=== PATIENT | male | born 1975 | race Two or more races ===

== ENCOUNTER → 2019-03-12 | Outpatient (CLI) | payer BC ==
[~2019-03-12] MED LIST: REGADENOSON 0.4 MG/5 ML SYRINGE ONE
== END | disposition home or self-care (01) ==
LOC: CVU 08:08
PROVIDERS: ATTEND Physician Assistant
DX: I08.8 Other rheumatic multiple valve diseases (principal)
CPT/HCPCS: 78452; 93017; 93306; A9502; J2785

== ENCOUNTER 2020-08-15 05:00 | Emergency (ER) | payer SELFPAY ==
[~2020-08-15] VITALS: Ht 175.3 cm; Wt 123.2 kg
--- NOTE | 2020-08-15 05:52 | NUR ---
FIRST CONTACT WITH PT, PT SPEAKS FULL SENTENCES. VSS. PCXR DONE, LAB HERE DRAWING BLOOD. 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 CALL RADHA HAYWARD. WILL CONTINUE TO MONITOR THIS NON TOXIC APPEARING PT.
[2020-08-15 06:06] LABS: BASOPHILS % (AUTO) 1 % (0-1); EOSINOPHILS % (AUTO) 0 % (1-7); LYMPHOCYTES % (AUTO) 13 % (22-44); MEAN CORPUSCULAR HEMOGLOBIN 30.4 pg (27.5-34.5); MEAN CORPUSCULAR HGB CONC 34.2 g/dL (33.2-36.2); MEAN PLATELET VOLUME 8.4 fL (7.4-10.4); MONOCYTES % (AUTO) 10 % (2-9); NEUTROPHILS % (AUTO) 76 % (42-75); PLATELET COUNT 268 x10^3/uL (130-400); RED BLOOD COUNT 5.58 x10^6/uL (4.38-5.82); RED CELL DISTRIBUTION WIDTH 13.4 % (9.4-14.8)
[2020-08-15 06:09] LABS: MD NO
[2020-08-15 06:14] LABS: ALBUMIN 3.8 g/dL (3.4-5.0); ANION GAP 6 mmol/L (5-15); CALCIUM 8.9 mg/dL (8.5-10.1); CHLORIDE 106 mmol/L (98-107)
[2020-08-15 06:22] LABS: ALANINE AMINOTRANSFERASE 35 U/L (12-78); ALKALINE PHOSPHATASE 103 U/L (45-117); BILIRUBIN,TOTAL 0.4 mg/dL (0.2-1.0); CREATININE 1.02 mg/dL (0.7-1.3); TOTAL PROTEIN 8.1 g/dL (6.4-8.2); TROPONIN I < 0.015 ng/mL (0.000-0.045)
--- NOTE | 2020-08-15 06:46 | NUR ---
PT WALKS TO BATHROOM, NAD. AWAITING ERP RE-EVAL.
[2020-08-15 07:37] VITALS: BP 151/94
--- NOTE | 2020-08-15 07:37 | NUR ---
discharge instructions reviewed
== END 2020-08-15 09:35 | disposition home or self-care (01) ==
LOC: ED 06:59
DX: U07.1 COVID-19 (principal); F41.9 Anxiety disorder, unspecified; R94.31 Abnormal electrocardiogram [ECG] [EKG]; F17.200 Nicotine dependence, unspecified, uncomplicated
CPT/HCPCS: 36415; 71045; 80053; 84484; 85025; 87635; 93005; 99285